=== PATIENT | male | born 1960 | race Caucasian/White ===

== ENCOUNTER 2016-08-30 22:04 | Emergency (ER) | payer MEDICARE | END 2016-08-31 02:56 | disposition home or self-care (01) | LOC: ER 22:04 | DX: R30.0 Dysuria (principal); Z79.01 Long term (current) use of anticoagulants; Z79.899 Other long term (current) drug therapy; Z79.4 Long term (current) use of insulin; Z87.891 Personal history of nicotine dependence | CPT/HCPCS: 81001; 87077; 87088; 87186 ==